=== PATIENT | female | born 1985 | race African-American/Black ===

== ENCOUNTER 2019-04-23 08:31 | Emergency (ER) | payer BC ==
[2019-04-23] MEDS ORDERED: Ketorolac Tromethamine 30 MG/ML VIAL ONE (09:22)
== END 2019-04-23 09:45 | disposition home or self-care (01) ==
LOC: ERS 08:31
DX: M94.0 Chondrocostal junction syndrome [Tietze] (principal); E05.90 Thyrotoxicosis, unspecified without thyrotoxic crisis or storm; Z79.899 Other long term (current) drug therapy
CPT/HCPCS: 93005; 96372; J1885

== ENCOUNTER 2019-06-28 12:56 | Outpatient (CLI) | payer BC ==
--- NOTE | 2019-06-28 13:58 | ULT ---
US Thyroid STANDARD History: E04.1 thyroid nodule Comparison: Thyroid ultrasound 2013 Findings: Real-time grayscale and color evaluation of the thyroid was performed. The background echotexture is markedly heterogeneous. Partial collapse of the previously described ri ght thyroid cysts. The isthmus measures 3 mm in AP dimension. Right lobe measures 5.1 x 2.1 x 2.5 cm and the left lobe m easures 5.9 x 2.3 x 2.5 cm. Given differences in measuring planes, the large left thyroid nodule inferior pole is unchanged. Small nodule superior pole left lobe is similar. There is been partial filling of the large right thyroid nodule with colloid. No new superimposed abn ormal nodule is appreciated. Impression: Similar appearance of the thyroid goiter.
== END 2019-06-28 12:57 | disposition home or self-care (01) ==
LOC: BICULT 12:56
PROVIDERS: ATTEND Specialist
DX: E04.1 Nontoxic single thyroid nodule (principal); E04.9 Nontoxic goiter, unspecified
CPT/HCPCS: 76536

== ENCOUNTER 2024-08-19 12:54 | Outpatient (CLI) | payer BC | END 2024-08-19 12:55 | disposition home or self-care (01) | LOC: ULT 12:54 | PROVIDERS: ATTEND Internal Medicine Endocrinology, Diabetes & Metabolism | DX: E04.2 Nontoxic multinodular goiter (principal); E05.80 Other thyrotoxicosis without thyrotoxic crisis or storm | CPT/HCPCS: 76536 ==